=== PATIENT | male | born 1990 | race Two or more races ===

== ENCOUNTER 2023-03-01 18:36 | Emergency (ER) | payer OTHER ==
[~2023-03-01] VITALS: Ht 180.3 cm; Wt 92.1 kg
== END 2023-03-01 19:25 | disposition home or self-care (01) ==
LOC: ER 18:36
DX: M25.511 Pain in right shoulder (principal); J02.9 Acute pharyngitis, unspecified

== ENCOUNTER → 2023-06-04 | Emergency (ER) | payer OTHER | END | disposition left against medical advice (07) | LOC: ER 19:30 | DX: Z53.21 Procedure and treatment not carried out due to patient leaving prior to being seen by health care provider (principal) ==